=== PATIENT | female | born 1950 | race Caucasian/White ===

== ENCOUNTER → 2017-06-17 | Outpatient (CLI) | payer MEDICARE, BC ==
--- NOTE | 2017-06-17 14:01 | XR ---
EXAMINATION TYPE: XR lumbar spine 2 or 3V DATE OF EXAM: 06/17/2017 CLINICAL HISTORY: Chronic low back pain with history of multiple surgeries per patient. Lumbago per o rder. TECHNIQUE: Frontal and lateral images of the lumbar spine are obtained. COMPARISON: None FINDINGS: There are 5 lumbar type vertebral bodies identified. Lumbar spine is straightened on sagit sharon images. There is slight dextroconvex scoliosis centered in the mid lumbar spine on frontal images . There are left-sided interpedicular rods and screws transfixing L2-L4 levels. There is artificial dis c material at L2-L3 through L4-L5 levels. There is posterior metallic hardware from inferior L2 throu gh mid L5 vertebral body. Spinous processes are felt surgically resected. There is moderate disc space narrowing L5-S1 level. Vertebral body heights are maintained. Osseous st ructures are demineralized. IMPRESSION: As above.
== END | disposition home or self-care (01) ==
LOC: RADXRYALE 13:26
PROVIDERS: ATTEND Nurse Practitioner Family
DX: M48.07 Spinal stenosis, lumbosacral region (principal); M41.86 Other forms of scoliosis, lumbar region; Z98.890 Other specified postprocedural states
CPT/HCPCS: 72100

== ENCOUNTER → 2017-08-06 | Outpatient (CLI) | payer MEDICARE, BC ==
--- NOTE | 2017-08-08 20:44 | BD ---
EXAMINATION TYPE: Axial Bone Density DATE OF EXAM: 08/06/2017 COMPARISON: NONE CLINICAL HISTORY: Height: 5 FT 6 1/2 IN Weight: 150 FRAX RISK QUESTIONS: Secondary Osteoporosis: Rheumatoid Arthritis: YES RISK FACTORS HISTORY OF: Surgery to Spine/Hip(right/left)/Wrist (right/left): LUMBAR SURG X FIVE,CPINE SURG When: [id number] APPROX Active: YES Postmenopausal woman: AGE 56 Lost more than 2 inches in height since high school: YES MEDICATIONS: Additional Medications: B 12 , NEURONTIN,LOPRESSOR,MOBIC,NORCO NEEDED Additional History: LUMBAR SURG X 5 EXAM MEASUREMENTS: Bone mineral density about the R hip (g/cm2): 0.757 Bone mineral density about the L hip (g/cm2): 0.835 T Score values are as follows: -----R Neck: -2.0 -----L Neck: -1.5 -----R Total: -2.1 -----L Total: -1.4 BASELINE Bone mineral density about the R Wrist (g/cm2): 0.501 Bone mineral density about the L Wrist (g/cm2): T Score values are as follows: -----Dist. R+U: -4.0 -----Prox. R+U: -2.3 -----Radius total: -2.9 BASELINE IMPRESSION: Osteoporosis (T Score less than -2.5). There is increased fracture risk and therapy is usually indicated based on age. Re-Screen 1-2 years. NOTE: T-SCORE=SD OF THE YOUNG ADULT MEAN.
--- NOTE | 2017-08-09 10:15 | MM ---
Reason for exam: screening (asymptomatic). History: Patient is postmenopausal and had first child at age 33. Physical Findings: A clinical breast exam by your physician is recommended on an annual basis and results should be correlated with mammographic findings. MG Screening Mammo w CAD Bilateral CC and MLO view(s) were taken. No prior studies available for comparison. The breast tissue is extremely dense which could obscure a lesion on mammography. There are grouped right superior breast calcifications at posterior depth. No suspicious abnormality on the left breast. Left cardiac device partially obscures the axilla. ASSESSMENT: Incomplete: need additional imaging evaluation, BI-RAD 0 RECOMMENDATION: Special view mammogram of the right breast. [facility] will attempt to contact patient to return for supplemental views.
== END | disposition home or self-care (01) ==
LOC: RADMAMWWP 09:42
PROVIDERS: ATTEND Family Medicine
DX: Z12.31 Encounter for screening mammogram for malignant neoplasm of breast (principal); M81.0 Age-related osteoporosis without current pathological fracture
CPT/HCPCS: 77067; 77080

== ENCOUNTER → 2017-08-18 | Outpatient (CLI) | payer MEDICARE, BC ==
--- NOTE | 2017-08-18 13:54 | MM ---
Reason for exam: additional evaluation requested from abnormal screening. Last mammogram was performed less than 1 month ago. History: Patient is postmenopausal and had first child at age 33. Physical Findings: Nurse did not find any significant physical abnormalities on exam. MG 3D Work Up W/Cad RT CC with magnification, LM with magnification, and LM view(s) were taken of the right breast. Prior study comparison: August 06, 2017, bilateral MG screening mammo w CAD. There is a 6mm group of rounded calcifications in the upper outer quadrant of the right breast at posterior depth on baseline mammogram and magnification views. These results were verbally communicated with the patient and result sheet given to the patient on 08/18/17. ASSESSMENT: Probably benign, BI-RAD 3 RECOMMENDATION: Follow-up diagnostic mammogram of the right breast in 6 months.
== END ==
LOC: RADMAMWWP 09:47
PROVIDERS: ATTEND Family Medicine
DX: R92.8 Other abnormal and inconclusive findings on diagnostic imaging of breast (principal)
CPT/HCPCS: 77065; G0279; 77061

== ENCOUNTER 2018-02-14 10:16 | Emergency (ER) | payer MEDICARE, BC ==
[2018-02-14 10:33] VITALS: TEMP 98.6
--- NOTE | 2018-02-14 11:18 | XR ---
EXAMINATION TYPE: XR wrist complete LT DATE OF EXAM: 02/14/2018 COMPARISON: None HISTORY: Pain, fall TECHNIQUE: Three-view left wrist FINDINGS: There is an impacted fracture of the metaphysis of the radius. There is posterior angulatio n of the distal fracture fragment. Degenerative changes are noted at the first carpal metacarpal junc tion. Diffuse soft tissue swelling is present. IMPRESSION: 1. Fracture of the distal metaphyseal radius with impaction and posterior angulation of the distal f racture fragment. 2. Degenerative changes at the first carpal metacarpal junction.
[2018-02-14] MEDS ORDERED: ETOMIDATE 2 MG/ML 10 ML VIAL IV STA (12:05)
[2018-02-14] MEDS ORDERED: MORPHINE SULFATE 2 MG/ML SYRINGE IVP ONE (12:05)
[2018-02-14] MEDS ORDERED: ONDANSETRON 4 MG/2 ML VIAL IVP STA (12:05)
--- NOTE | 2018-02-14 12:19 | ED ---
Upper Extremity HPI <Robb Cordero - Last Filed: 02/14/18 12:50> - General Source: patient, RN notes reviewed Mode of arrival: ambulatory Limitations: no limitations <Bruce Mcallister - Last Filed: 02/14/18 12:57> - General Chief Complaint: Extremity Injury, Upper Stated Complaint: fall/wrist pain Time Seen by Provider: 02/14/18 10:42 - History of Present Illness Initial Comments: 68-year-old female presents emergency Department with chief complaint of left wrist injury. Patient states she is on step stool and fell onto her wrist onto the ground. Patient denies head injury no loss conscious. Patient denies any other injuries. She is ambulatory denies hip or back pain. Patient states that she woke up this morning is more swollen and she became concerned. Denies any paresthesias. (Bruce Mcallister) - Related Data Home Medications Medication Instructions Recorded Confirmed Alendronate Sodium 70 mg PO TU 02/14/18 02/14/18 Gabapentin 600 mg PO QID 02/14/18 02/14/18 Hydrocodone/Acetaminophen [Kennedy 1 tab PO TID PRN 02/14/18 02/14/18 10-325] Ibuprofen [Motrin] 600 mg PO Q6HR PRN 02/14/18 02/14/18 Meloxicam [Mobic] 7.5 mg PO DAILY 02/14/18 02/14/18 Metoprolol Tartrate [Lopressor] 25 mg PO BID 02/14/18 02/14/18 Nitroglycerin Sl Tabs [Nitrostat] 0.4 mg SUBLINGUAL Q5M PRN 02/14/18 02/14/18 Allergies Allergy/AdvReac Type Severity Reaction Status Date / Time Iodinated Contrast- Oral and Allergy Unknown Verified 02/14/18 10:28 IV Dye oxycodone [From OxyContin] Allergy Hallucinati Verified 02/14/18 10:28 ons Review of Systems ROS Other: All systems not noted in ROS Statement are negative. <Robb Cordero - Last Filed: 02/14/18 12:50> ROS Other: All systems not noted in ROS Statement are negative. <Bruce Mcallitser - Last Filed: 02/14/18 12:57> ROS Statement: Those systems with pertinent positive or pertinent negative responses have been documented in the HPI. Past Medical History History of Any Multi-Drug Resistant Organisms: None Reported Past Surgical History: Back Surgery, Pacemaker Additional Past Surgical History / Comment(s): defibrillator Past Psychological History: No Psychological Hx Reported Smoking Status: Never smoker Past Alcohol Use History: Occasional Past Drug Use History: None Reported <Bruce Mcallister - Last Filed: 02/14/18 12:57> General Exam Limitations: no limitations General appearance: alert, in no apparent distress Head exam: Present: atraumatic, normocephalic, normal inspection Neck exam: Present: normal inspection, full ROM. Absent: tenderness, meningismus, lymphadenopathy Respiratory exam: Present: normal lung sounds bilaterally. Absent: respiratory distress, wheezes, rales, rhonchi, stridor Cardiovascular Exam: Present: regular rate, normal rhythm, normal heart sounds. Absent: systolic murmur, diastolic murmur, rubs, gallop, clicks Extremities exam: Present: other (Left wrist there is a noted deformity, angulation, tenderness over the distal forearm and wrist region, no tenderness of the left hand, no proximal forearm tenderness) Skin exam: Present: warm, dry, intact, normal color. Absent: rash <Bruce Mcallister - Last Filed: 02/14/18 12:57> Vital Signs 02/14/18 02/14/18 02/14/18 10:29 12:18 12:21 Temperature 98.6 F Pulse Rate 60 73 63 Respiratory 18 18 18 Rate Blood Pressure 199/92 185/94 179/85 O2 Sat by Pulse 100 99 99 Oximetry 02/14/18 02/14/18 02/14/18 12:36 12:39 12:50 Temperature Pulse Rate 100 63 60 Respiratory 18 16 20 Rate Blood Pressure 152/108 155/86 182/90 O2 Sat by Pulse 100 63 L 97 Oximetry Procedures - Orthopedic Fracture Reduction Fracture #1 Consent Obtained: verbal consent, written consent Time Out Performed: Yes Side: left Fracture Reduction Location: radius Analgesia: procedural sedation Technique: direct manipulation, finger traps Post Reduction X-rays Demonstrate: acceptable reduction Post-Reduction Neuro Exam: intact Post-Reduction Vascular Exam: intact Splint Applied: Yes Patient Tolerated Procedure: well, no complications - Orthopedic Splinting/Casting Injury #1 Side: left Upper Extremity Injury Location: short arm Upper Extremity Immobilizer: sugar tong splint - Procedural Sedation Procedural Sedation Start Time: 12:28 Procedural Sedation Stop Time: 12:50 Indications: fracture/dislocation reduction Preparation: gambling monitor applied, pulse oximeter, capnometry used, supplemental O2 applied IV Etomidate Dose (mgs): 20 Complications: none Patient Tolerated Procedure: well, no complications <Robb Cordero - Last Filed: 02/14/18 12:50> Medical Decision Making <Robb Cordero - Last Filed: 02/14/18 12:50> <Bruce Mcallister - Last Filed: 02/14/18 12:57> - Medical Decision Making Patient evaluated prior to reduction. Patient updated on benefits and risks of reduction and sedation. Patient is agreeable. Reduction was acceptable. Patient updated. I did perform the sedation and reduction myself with assistance of ATIF Keen (Robb Cordero) 68-year-old female sent for fall left wrist pain. Patient had left wrist fracture with displacement. This was reduced by Dr. Cordero. Patient was splinted and will follow-up with orthopedics. (Bruce Mcallister) Disposition <Robb Cordero - Last Filed: 02/14/18 12:50> Is patient prescribed a controlled substance at d/c from ED?: No Time of Disposition: 12:57 <Bruce Mcallister - Last Filed: 02/14/18 12:57> Clinical Impression: Closed left arm fracture Disposition: HOME SELF-CARE Condition: Stable Instructions: Arm Fracture in Adults (ED) Additional Instructions: Please return to the Emergency Department if symptoms worsen or any other concerns. Referrals: Anai Frank DO [Primary Care Provider] - 1-2 days Daniel Robertson MD [STAFF PHYSICIAN] - 1-2 days
[2018-02-14] MEDS ORDERED: ETOMIDATE 2 MG/ML 10 ML VIAL IVP STA (12:47)
--- NOTE | 2018-02-14 13:22 | XR ---
EXAMINATION TYPE: XR wrist limited LT DATE OF EXAM: 02/14/2018 COMPARISON: 02/14/2018 earlier exam HISTORY: Fracture distal radius TECHNIQUE: 2 view left wrist FINDINGS: Images are obtained through a fiberglass splint. There is a transverse fracture of the dist al metaphysis left radius. This is been reduced and only mild posterior angulation may be present. Th ere may be some impaction remaining. Soft tissue swelling is present diffusely. IMPRESSION: 1. Reduction of prior transverse fracture distal metaphyseal left radius.
[2018-02-14 13:34] VITALS: BP 184/89; PULSE 62; RESP 18
== END 2018-02-14 13:34 | disposition home or self-care (01) ==
LOC: EC 10:16
DX: S52.592A Other fractures of lower end of left radius, initial encounter for closed fracture (principal); Z79.1 Long term (current) use of non-steroidal anti-inflammatories (NSAID); Z79.899 Other long term (current) drug therapy; Z88.8 Allergy status to other drugs, medicaments and biological substances; Z91.041 Radiographic dye allergy status; W17.89XA Other fall from one level to another, initial encounter; Y93.89 Activity, other specified; Y92.009 Unspecified place in unspecified non-institutional (private) residence as the place of occurrence of the external cause; Z95.810 Presence of automatic (implantable) cardiac defibrillator
CPT/HCPCS: 99283 ×2; 25605 ×2; 99152 ×2; 96374 ×2; 96375 ×2; 73100; 73110; J2405; J2270

== ENCOUNTER 2018-10-24 11:32 | Inpatient (IN) | payer MEDICARE, BC ==
[2018-10-24 12:12] LABS: Appearance,Urine Cloudy (Clear); Bacteria,Urine Few /hpf; Bilirubin,Urine Negative (Negative); Blood,Urine Small (Negative); Color,Urine Light Yellow; Glucose,Urine (UA) Negative (Negative); Ketones,Urine Negative (Negative); Leukocyte Esterase,Urine Large (Negative); Mucus,Urine Rare /hpf; Nitrite,Urine Positive (Negative); Protein,Urine Trace (Negative); RBC,Urine 4 /hpf (0-5); Specific Gravity,Urine 1.007 (1.001-1.035); Squamous Epithelial Cell,Urine 2 /hpf (0-4); Urobilinogen,Urine <2.0 mg/dL (<2.0); WBC,Urine 26 /hpf (0-5)
[2018-10-24] MEDS ORDERED: IBUPROFEN 600 MG TAB PO STA (12:59)
[2018-10-24] MEDS ORDERED: ACETAMINOPHEN TAB 500 MG TAB PO STA (12:59)
--- NOTE | 2018-10-24 13:12 | ED ---
General Adult HPI - General Chief complaint: Altered Mental Status Stated complaint: confusion Time Seen by Provider: 10/24/18 11:50 Source: patient, RN notes reviewed Mode of arrival: ambulatory Limitations: no limitations - History of Present Illness Initial comments: This is a 68-year-old female who presents to the emergency department because daughter brought her in because she was confused. Patient herself does not remember some of the things that when on this morning but daughter states that she thought it was lunch when it was breakfast she also was confused where she was and when she got to the emergency department she thought she had gone to bathroom at home but had just gone to the bathroom in the emergency department. According to the daughter on Wednesday the patient had a temperature of 102 and on Wednesday when she saw a physician for something else she had low blood pressure so they cut her blood pressure meds and half but daughter is now wondering if she has not been febrile all weekend. Patient denies any headache patient d enies any numbness or weakness. Patient denies chest pain difficulty breathing first breath per patient denies any cough. Patient denies any abdominal pain patient's nausea vomiting or diarrhea. Patient denies any hematuria urinary frequency or urinary urgency or dysuria. - Related Data Home Medications Medication Instructions Recorded Confirmed Alendronate Sodium 70 mg PO TU 02/14/18 10/24/18 Gabapentin 600 mg PO QID 02/14/18 10/24/18 Meloxicam [Mobic] 7.5 mg PO BID 02/14/18 10/24/18 Nitroglycerin Sl Tabs [Nitrostat] 0.4 mg SUBLINGUAL Q5M PRN 02/14/18 10/24/18 Metoprolol Succinate (ER) [Toprol 25 mg PO DAILY 10/24/18 10/24/18 Xl] Allergies Allergy/AdvReac Type Severity Reaction Status Date / Time Iodinated Contrast- Oral and Allergy Unknown Verified 10/24/18 13:11 IV Dye oxycodone [From OxyContin] Allergy Hallucinati Verified 10/24/18 13:11 ons Review of Systems ROS Statement: Those systems with pertinent positive or pertinent negative responses have been documented in the HPI. ROS Other: All systems not noted in ROS Statement are negative. Past Medical History Past Medical History: Hypertension Additional Past Medical History / Comment(s): chronic back cardiac arrest cardiomyopathy History of Any Multi-Drug Resistant Organisms: None Reported Past Surgical History: Back Surgery, Pacemaker Additional Past Surgical History / Comment(s): defibrillator neck Past Psychological History: No Psychological Hx Reported Smoking Status: Never smoker Past Alcohol Use History: Occasional Past Drug Use History: None Reported General Exam - General Exam Comments Initial Comments: GENERAL: Patient is well-developed and well-nourished. Patient is nontoxic and well- hydrated and is in mild distress. ENT: Neck is soft and supple. No significant lymphadenopathy is noted. Oropharynx is clear. Moist mucous membranes. Neck has full range of motion without eliciting any pain. EYES: The sclera were anicteric and conjunctiva were pink and moist. Extraocular movements were intact and pupils were equal round and reactive to light. Eyelids were unremarkable. PULMONARY: Unlabored respirations. Good breath sounds bilaterally. No audible rales rhonchi or wheezing was noted. CARDIOVASCULAR: There is a regular rate and rhythm without any murmurs gallops or rubs. ABDOMEN: Soft and nontender with normal bowel sounds. SKIN: Skin is clear with no lesions or rashes and otherwise unremarkable. NEUROLOGIC: Patient is alert and oriented x3. Cranial nerves II through XII are grossly intact. Motor and sensory are also intact. Normal speech, volume and content. Symmetrical smile. MUSCULOSKELETAL: Normal extremities with adequate strength and full range of motion. No lower extremity swelling or edema. No calf tenderness. LYMPHATICS: No significant lymphadenopathy is noted PSYCHIATRIC: Normal psychiatric evaluation. Limitations: no limitations Course Vital Signs 10/24/18 10/24/18 11:47 14:37 Temperature 103.0 F H 100.7 F H Pulse Rate 87 66 Respiratory 18 14 Rate Blood Pressure 126/68 113/57 O2 Sat by Pulse 98 96 Oximetry Medical Decision Making - Medical Decision Making EKG shows normal sinus rhythm at 66 bpm TX interval is 148 QRSs 142 QT intervals 470 QTC is 492 per patient's EKG shows a left bundle branch block. Patient was still slightly altered according to the daughter. Patient urinary tract infection so at this time we decided to keep the patient and continue antibiotics and fluids. I spoke with because he agreed to admit the patient admitted the patient wrote admitting orders. - Lab Data Result diagrams: 10/24/18 14:00 10/24/18 14:00 Lab Results 10/24/18 10/24/18 10/24/18 Range/Units 11:52 14:00 14:00 WBC 7.7 (3.8-10.6) k/uL RBC 3.04 L (3.80-5.40) m/uL Hgb 10.3 L (11.4-16.0) gm/dL Hct 30.5 L (34.0-46.0) % MCV 100.2 H (80.0-100.0) fL MCH 33.9 (25.0-35.0) pg MCHC 33.8 (31.0-37.0) g/dL RDW 13.1 (11.5-15.5) % Plt Count 200 (150-450) k/uL Neutrophils % (Manual) 82 % Lymphocytes % (Manual) 4 % Monocytes % (Manual) 14 % Neutrophils # (Manual) 6.31 (1.3-7.7) k/uL Lymphocytes # (Manual) 0.31 L (1.0-4.8) k/uL Monocytes # (Manual) 1.08 H (0-1.0) k/uL Nucleated RBCs 0 (0-0) /100 WBC Manual Slide Review Performed Poikilocytosis (manual Present Anisocytosis (manual) Present PT (9.0-12.0) sec INR (<1.2) APTT (22.0-30.0) sec Sodium 127 L (137-145) mmol/L Potassium 4.4 (3.5-5.1) mmol/L Chloride 96 L (98-107) mmol/L Carbon Dioxide 21 L (22-30) mmol/L Anion Gap 10 mmol/L BUN 13 (7-17) mg/dL Creatinine 0.84 (0.52-1.04) mg/dL Est GFR (CKD-EPI)AfAm 83 (>60 ml/min/1.73 sqM) Est GFR (CKD-EPI)NonAf 72 (>60 ml/min/1.73 sqM) Glucose 112 H (74-99) mg/dL Plasma Lactic Acid Marco A (0.7-2.0) mmol/L Calcium 8.3 L (8.4-10.2) mg/dL Total Bilirubin 0.5 (0.2-1.3) mg/dL AST 24 (14-36) U/L ALT 16 (9-52) U/L Alkaline Phosphatase 49 (38-126) U/L Total Protein 6.3 (6.3-8.2) g/dL Albumin 3.4 L (3.5-5.0) g/dL Urine Color Light Yellow Urine Appearance Cloudy H (Clear) Urine pH 6.0 (5.0-8.0) Ur Specific [place] 1.007 (1.001-1.035) Urine Protein Trace H (Negative) Urine Glucose (UA) Negative (Negative) Urine Ketones Negative (Negative) Urine Blood Small H (Negative) Urine Nitrite Positive H (Negative) Urine Bilirubin Negative (Negative) Urine Urobilinogen <2.0 (<2.0) mg/dL Ur Leukocyte Esterase Large H (Negative) Urine RBC 4 (0-5) /hpf Urine WBC 26 H (0-5) /hpf Ur Squamous Epith Cells 2 (0-4) /hpf Urine Bacteria Few H (None) /hpf Urine Mucus Rare H (None) /hpf 10/24/18 10/24/18 Range/Units 14:00 14:00 WBC (3.8-10.6) k/uL RBC (3.80-5.40) m/uL Hgb (11.4-16.0) gm/dL Hct (34.0-46.0) % MCV (80.0-100.0) fL MCH (25.0-35.0) pg MCHC (31.0-37.0) g/dL RDW (11.5-15.5) % Plt Count (150-450) k/uL Neutrophils % (Manual) % Lymphocytes % (Manual) % Monocytes % (Manual) % Neutrophils # (Manual) (1.3-7.7) k/uL Lymphocytes # (Manual) (1.0-4.8) k/uL Monocytes # (Manual) (0-1.0) k/uL Nucleated RBCs (0-0) /100 WBC Manual Slide Review Poikilocytosis (manual Anisocytosis (manual) PT 9.8 (9.0-12.0) sec INR 0.9 (<1.2) APTT 30.3 H (22.0-30.0) sec Sodium (137-145) mmol/L Potassium (3.5-5.1) mmol/L Chloride (98-107) mmol/L Carbon Dioxide (22-30) mmol/L Anion Gap mmol/L BUN (7-17) mg/dL Creatinine (0.52-1.04) mg/dL Est GFR (CKD-EPI)AfAm (>60 ml/min/1.73 sqM) Est GFR (CKD-EPI)NonAf (>60 ml/min/1.73 sqM) Glucose (74-99) mg/dL Plasma Lactic Acid Marco A 0.7 (0.7-2.0) mmol/L Calcium (8.4-10.2) mg/dL Total Bilirubin (0.2-1.3) mg/dL AST (14-36) U/L ALT (9-52) U/L Alkaline Phosphatase (38-126) U/L Total Protein (6.3-8.2) g/dL Albumin (3.5-5.0) g/dL Urine Color Urine Appearance (Clear) Urine pH (5.0-8.0) Ur Specific [place] (1.001-1.035) Urine Protein (Negative) Urine Glucose (UA) (Negative) Urine Ketones (Negative) Urine Blood (Negative) Urine Nitrite (Negative) Urine Bilirubin (Negative) Urine Urobilinogen (<2.0) mg/dL Ur Leukocyte Esterase (Negative) Urine RBC (0-5) /hpf Urine WBC (0-5) /hpf Ur Squamous Epith Cells (0-4) /hpf Urine Bacteria (None) /hpf Urine Mucus (None) /hpf Disposition Clinical Impression: Altered mental status, Urinary tract infection Disposition: ADMITTED IP TO THIS HOSP Referrals: Anai Frank DO [Primary Care Provider] - 1-2 days Time of Disposition: 15:43
--- NOTE | 2018-10-24 13:34 | XR ---
EXAMINATION TYPE: XR chest 2V DATE OF EXAM: 10/24/2018 COMPARISON: None HISTORY: 68-year-old female with fever and confusion TECHNIQUE: PA and lateral views FINDINGS: Heart normal size. Aorta within normal limits. ACF hardware. Mild patchy density at the cardiac apex. No pleural effusion. Left anterior chest wall ICD generator with right atrial and right ventricular leads. Partially visualized posterior lumbar fusion hardware. IMPRESSION: Some mild patchy density at the cardiac apex could represent lingular atelectasis or early infiltrate . Consider follow-up.
[2018-10-24] MEDS: SODIUM CHLORIDE 0.9% 500 ML 500 ML IV SCH ×3 (14:10→14:42)
[2018-10-24 14:30] LABS: Albumin 3.4 g/dL (3.5-5.0); Calcium 8.3 mg/dL (8.4-10.2); Potassium 4.4 mmol/L (3.5-5.1); Total Bilirubin 0.5 mg/dL (0.2-1.3); Total Protein 6.3 g/dL (6.3-8.2)
[2018-10-24 14:31] LABS: INR 0.9 (<1.2); Partial Thromboplastin Time 30.3 sec (22.0-30.0); Prothrombin Time 9.8 sec (9.0-12.0)
[2018-10-24 14:37] LABS: HCT 30.5 % (34.0-46.0); HGB 10.3 gm/dL (11.4-16.0); MCH 33.9 pg (25.0-35.0); MCHC 33.8 g/dL (31.0-37.0); MCV 100.2 fL (80.0-100.0); Mean Platelet Volume 7.7; Platelet Count 200 k/uL (150-450); RBC 3.04 m/uL (3.80-5.40); RDW 13.1 % (11.5-15.5); WBC 7.7 k/uL (3.8-10.6)
[2018-10-24 14:56] LABS: Anisocytosis (M) Present; Lymphocytes # (M) 0.31 k/uL (1.0-4.8); Monocytes # (M) 1.08 k/uL (0-1.0); Neutrophils # (M) 6.31 k/uL (1.3-7.7); Neutrophils % (M) 82 %; Nucleated Red Blood Cells 0 /100 WBC (0-0); Poikilocytosis (M) Present; Total Cells Counted 100
[2018-10-24] MEDS ORDERED: SODIUM CHLORIDE 0.9% 1,000 ML IV ONE (15:44)
[2018-10-24] MEDS ORDERED: NITROGLYCERIN SL TABS 0.4 MG TAB SUBLINGUAL PRN (17:36)
[2018-10-24] MEDS: GABAPENTIN 300 MG CAP PO SCH ×2 (18:19→21:10)
[2018-10-24] MEDS: MELOXICAM 7.5 MG TAB PO SCH (21:10)
[2018-10-24] MEDS: HEPARIN SODIUM,PORCINE 5,000 UNIT/ML 1 ML VIAL SQ SCH (21:10)
[2018-10-25] MEDS: ACETAMINOPHEN TAB 325 MG TAB PO PRN ×3 (03:09→19:13)
[2018-10-25] MEDS: MELOXICAM 7.5 MG TAB PO SCH ×2 (07:54→21:06)
[2018-10-25] MEDS: METOPROLOL SUCCINATE (ER) 25 MG TAB.ER.24H PO SCH (07:54)
[2018-10-25] MEDS: HEPARIN SODIUM,PORCINE 5,000 UNIT/ML 1 ML VIAL SQ SCH ×2 (07:55→21:09)
[2018-10-25] MEDS: GABAPENTIN 300 MG CAP PO SCH ×4 (07:55→21:06)
[2018-10-25 14:56] LABS: Basophils # (A) 0.1 k/uL (0-0.2); Basophils % (A) 1 %; Eosinophils # (A) 0.1 k/uL (0-0.7); Eosinophils % (A) 1 %; HCT 36.4 % (34.0-46.0); HGB 11.5 gm/dL (11.4-16.0); Lymphocytes # (A) 0.6 k/uL (1.0-4.8); Lymphocytes % (A) 5 %; MCH 33.8 pg (25.0-35.0); MCHC 31.6 g/dL (31.0-37.0); Macrocytosis Moderate; Mean Platelet Volume 7.7; Monocytes # (A) 1.2 k/uL (0-1.0); Monocytes % (A) 10 %; Neutrophils # (A) 9.3 k/uL (1.3-7.7); Neutrophils % (A) 80 %; Platelet Count 248 k/uL (150-450); RBC 3.41 m/uL (3.80-5.40); RDW 13.1 % (11.5-15.5); WBC 11.7 k/uL (3.8-10.6)
[2018-10-25 15:10] LABS: African American GFR (CKD) >90 (>60 ml/min/1.73 sqM); Anion Gap 11 mmol/L; Blood Urea Nitrogen 11 mg/dL (7-17); Calcium 8.3 mg/dL (8.4-10.2); Carbon Dioxide 19 mmol/L (22-30); Chloride 105 mmol/L (98-107); Glucose 110 mg/dL (74-99); Non-African American GFR(CKD) >90 (>60 ml/min/1.73 sqM); Potassium 4.4 mmol/L (3.5-5.1); Sodium 135 mmol/L (137-145)
[2018-10-25 15:19] LABS: MCV 106.9 fL (80.0-100.0)
[2018-10-25] MEDS ORDERED: HYDROcodone/APAP 5-325MG 1 EACH TAB PO PRN ×2 (20:11→22:04)
--- NOTE | 2018-10-25 23:11 | P.HPIM ---
History of Present Illness H&P Date: 10/25/18 Chief Complaint: Altered mental status Patient is a 68-year-old female with a known history of chronic back pain and multiple back surgeries, dual pacer and defibrillator due to history of cardiac arrest following back surgery, bilateral knee pain was brought to the hospital due to altered mental status. Patient says that her daughter found her very confused and also wasn't able to keep her things in the house as her usual. Patient is babysitting her grandkids. Patient's daughter is a nurse and thought she is very confused and having altered sensorium and was brought to the hospital. According to the daughter on Wednesday the patient had a temperature of 102 and on Wednesday when she saw a physician for something else she had low blood pressure so they cut her blood pressure meds and half but daughter is now wondering if she has not been febrile all weekend. Patient denies any headache patient denies any numbness or weakness. Patient denies chest pain difficulty breathing first breath per patient denies any cough. Patient denies any abdominal pain patient's nausea vomiting or diarrhea. Patient denies any hematuria urinary frequency or urinary urgency or dysuria. Otherwise patient did some lower abdominal discomfort and going to the bathroom more often with sense of incomplete bladder emptying. Urinalysis showed nitrate positive and large leukocyte esterase along with pyuria. Sodium level is 127 on admission. T-max 10 3F currently patient is awake alert and oriented 3 and is at baseline. Review of Systems Constitutional: Patient denies any fever or chills . No generalized weakness or weight loss. Abdomen: Patient denied nausea vomiting and diarrhea and abdominal pain. Cardiovascular: Patient denies any chest pain or short of breath no palpitations. Respiratory: patient denied any cough is from production. No shortness of breath Neurologic: Patient denied any numbness or tingling headache. Musculoskeletal: Patient denies any complaints of joint swelling or deformity. Skin: Negative Psychiatric: Negative Endocrine: No heat or cold intolerance. No recent weight gain. Genitourinary: No dysuria or hematuria. All other 14 point ROS negative except the above Past Medical History Past Medical History: Hypertension Additional Past Medical History / Comment(s): chronic back pain, cardiac arrest, cardiomyopathy, bilateral kneee pain (in need of replacement), left hip pain (in need of replacement) History of Any Multi-Drug Resistant Organisms: None Reported Past Surgical History: Back Surgery, Pacemaker Additional Past Surgical History / Comment(s): dual pacer, defibrillator, cervical spondylosis, multiple back surgeries. Past Anesthesia/Blood Transfusion Reactions: No Reported Reaction Type of Cardiac Device: Permanent Pacemaker, AICD Device Placement Date:: 2007 Past Psychological History: No Psychological Hx Reported Smoking Status: Never smoker Past Alcohol Use History: Occasional Past Drug Use History: None Reported - Past Family History Father Family Medical History: Congestive Heart Failure (CHF), Diabetes Mellitus Additional Family Medical History / Comment(s): in 1970 at age 57 Mother Family Medical History: Congestive Heart Failure (CHF) Additional Family Medical History / Comment(s): at age 90 Medications and Allergies Home Medications Medication Instructions Recorded Confirmed Type Alendronate Sodium 70 mg PO TU 02/14/18 10/24/18 History Gabapentin 600 mg PO QID 02/14/18 10/24/18 History Meloxicam [Mobic] 7.5 mg PO BID 02/14/18 10/24/18 History Nitroglycerin Sl Tabs [Nitrostat] 0.4 mg SUBLINGUAL Q5M PRN 02/14/18 10/24/18 History Metoprolol Succinate (ER) [Toprol 25 mg PO DAILY 10/24/18 10/24/18 History Xl] Allergies Allergy/AdvReac Type Severity Reaction Status Date / Time Iodinated Contrast- Oral and Allergy Unknown Verified 10/24/18 13:11 IV Dye oxycodone [From OxyContin] Allergy Hallucinati Verified 10/24/18 13:11 ons Physical Exam Vitals: Vital Signs Temp Pulse Pulse Resp BP BP Pulse Ox 10/25/18 07:45 98 10/25/18 05:00 100.2 F H 77 18 132/69 97 10/24/18 23:00 97.5 F L 60 18 154/71 100 10/24/18 17:10 60 18 10/24/18 16:35 97.9 F 60 18 107/54 98 10/24/18 16:03 99.5 F 60 14 107/54 98 10/24/18 14:37 100.7 F H 66 14 113/57 96 Intake and Output 10/24/18 10/25/18 10/25/18 22:59 06:59 14:59 Intake Total 0 1000 Balance 0 1000 Intake: Intake, IV Titration 1000 Amount Sodium Chloride 0.9% 1, 1000 000 ml @ 125 mls/hr IV . Q8H ONE Rx#:[id number] Oral 0 Other: Voiding Method Toilet Toilet # Voids 2 3 # Bowel Movements 1 PHYSICAL EXAMINATION: Patient is lying in the bed comfortably, no acute distress, awake alert and deedee ented.. HEENT: Normocephalic. Neck is supple. Pupils reactive. Nostrils clear. Oral cavity is moist. Ears reveal no drainage. Neck reveals no JVD, carotid bruits, or thyromegaly. CHEST EXAMINATION: Trachea is central. Symmetrical expansion. Lung parekh clear to auscultation and percussion. CARDIAC: Normal S1, S2 with no gallops. No murmurs ABDOMEN: Soft. Bowel sounds normal. No organomegaly. No abdominal bruits. Extremities: reveal no edema. No clubbing or cyanosis Neurologically awake, alert, oriented x3 with well-coordinated movements. No focal deficits noted Skin: No rash or skin lesions. Psychiatric: Coperative. Nonsuicidal Musculoskeletal: No joint swelling or deformity. Normal range of motion. Results CBC & Chem 7: 10/25/18 14:38 10/25/18 14:38 Labs: Abnormal Lab Results - Last 24 Hours (Table) 10/24/18 10/24/18 10/24/18 Range/Units 14:00 14:00 14:00 RBC 3.04 L (3.80-5.40) m/uL Hgb 10.3 L (11.4-16.0) gm/dL Hct 30.5 L (34.0-46.0) % MCV 100.2 H (80.0-100.0) fL Lymphocytes # (Manual) 0.31 L (1.0-4.8) k/uL Monocytes # (Manual) 1.08 H (0-1.0) k/uL APTT 30.3 H (22.0-30.0) sec Sodium 127 L (137-145) mmol/L Chloride 96 L (98-107) mmol/L Carbon Dioxide 21 L (22-30) mmol/L Glucose 112 H (74-99) mg/dL Calcium 8.3 L (8.4-10.2) mg/dL Albumin 3.4 L (3.5-5.0) g/dL Microbiology - Last 24 Hours (Table) 10/24/18 11:52 Urine Culture - Preliminary Urine,Voided Gram Neg Bacilli Thrombosis Risk Factor Assmnt - DVT/VTE Prophylaxis DVT/VTE Prophylaxis: Pharmacologic Prophylaxis ordered - Choose All That Apply Each Risk Factor Represents 2 Points: Age 61-74 years Thrombosis Risk Factor Assessment Total Risk Factor Score: 2 Thrombosis Risk Factor Assessment Level: Low Risk Assessment and Plan Assessment: Altered mental status secondary to metabolic encephalopathy and infection Acute urinary tract infection Hypovolemic hyponatremia Macrocytic anemia Chronic back pain and left hip pain History of cardiac arrest and status AICD placement. DVT prophylaxis with heparin subcu Plan Patient will be continued on antibiotics in the form of ceftriaxone. Follow with urine culture report. Patient was given 1 L normal saline bolus in the ER. Follow up sodium level. Continue the pain medications in the form of [place]. We will check B12 and TSH level. Further recommendations based on the clinical course. Follow up closely. Time with Patient: Greater than 30
[2018-10-26] MEDS: HEPARIN SODIUM,PORCINE 5,000 UNIT/ML 1 ML VIAL SQ SCH (07:57)
[2018-10-26] MEDS: MELOXICAM 7.5 MG TAB PO SCH (07:57)
[2018-10-26] MEDS: GABAPENTIN 300 MG CAP PO SCH ×2 (07:57→13:18)
[2018-10-26] MEDS: METOPROLOL SUCCINATE (ER) 25 MG TAB.ER.24H PO SCH (07:57)
[2018-10-26 08:04] LABS: Basophils % (A) 0 %; Eosinophils # (A) 0.1 k/uL (0-0.7); Eosinophils % (A) 1 %; HCT 30.7 % (34.0-46.0); Lymphocytes # (A) 0.7 k/uL (1.0-4.8); Lymphocytes % (A) 9 %; MCH 33.2 pg (25.0-35.0); MCHC 32.3 g/dL (31.0-37.0); MCV 102.9 fL (80.0-100.0); Macrocytosis Slight; Mean Platelet Volume 7.5; Monocytes # (A) 0.7 k/uL (0-1.0); Monocytes % (A) 9 %; Neutrophils # (A) 6.1 k/uL (1.3-7.7); Neutrophils % (A) 77 %; Platelet Count 235 k/uL (150-450); RBC 2.98 m/uL (3.80-5.40); RDW 12.8 % (11.5-15.5); WBC 7.9 k/uL (3.8-10.6)
[2018-10-26 08:07] LABS: African American GFR (CKD) >90 (>60 ml/min/1.73 sqM); Anion Gap 8 mmol/L; Blood Urea Nitrogen 6 mg/dL (7-17); Carbon Dioxide 23 mmol/L (22-30); Chloride 102 mmol/L (98-107); Glucose 96 mg/dL (74-99); Non-African American GFR(CKD) >90 (>60 ml/min/1.73 sqM); Sodium 133 mmol/L (137-145)
[2018-10-26 08:08] LABS: HGB 9.9 gm/dL (11.4-16.0)
[2018-10-26 12:45] VITALS: BP 152/80; PULSE 61; RESP 16; TEMP 98.6
--- NOTE | 2018-11-07 02:22 | P.DS ---
Providers Date of admission: 10/24/18 15:44 Expected date of discharge: 10/26/18 Attending physician: Tito Valentin Primary care physician: Anai Frank Hospital Course: Discharge diagnosis Altered mental status secondary to metabolic encephalopathy and infection. resolved now Acute urinary tract infection with E. coli Hypovolemic hyponatremia. Improved Macrocytic anemia Chronic back pain and left hip pain History of cardiac arrest and status AICD placement. DVT prophylaxis with heparin subcu Hospital course Patient is a 68-year-old female with a known history of chronic back pain and multiple back surgeries, dual pacer and defibrillator due to history of cardiac arrest following back surgery, bilateral knee pain was brought to the hospital due to altered mental status. Patient says that her daughter found her very co nfused and also wasn't able to keep her things in the house as her usual. Patient is babysitting her grandkids. Patient's daughter is a nurse and thought she is very confused and having altered sensorium and was brought to the hospital. According to the daughter on Wednesday the patient had a temperature of 102 and on Wednesday when she saw a physician for something else she had low blood pressure so they cut her blood pressure meds and half but daughter is now wondering if she has not been febrile all weekend. Patient denies any headache patient denies any numbness or weakness. Patient denies chest pain difficulty breathing first breath per patient denies any cough. Patient denies any abdominal pain patient's nausea vomiting or diarrhea. Patient denies any hematuria urinary frequency or urinary urgency or dysuria. Otherwise patient did some lower abdominal discomfort and going to the bathroom more often with sense of incomplete bladder emptying. Urinalysis showed nitrate positive and large leukocyte esterase along with pyuria. Sodium level is 127 on admission. T-max 10 3F currently patient is awake alert and oriented 3 and is at baseline. 10/26/2018 Patient is awake and alert and oriented 3 today. Patient was continued on ceftriaxone. Urine culture showed E. coli. Sodium level improved to 133 today. Otherwise patient wants to be discharged home today. TSH within normal limits. B12 level is elevated but patient is not on B12 supplements at home. No complaints of chest pain or shortness of breath. No nausea vomiting or abdominal pain. PHYSICAL EXAMINATION: Patient is lying in the bed comfortably, no acute distress, awake alert and oriented.. HEENT: Normocephalic. Neck is supple. Pupils reactive. Nostrils clear. Oral cavity is moist. Ears reveal no drainage. Neck reveals no JVD, carotid bruits, or thyromegaly. CHEST EXAMINATION: Trachea is central. Symmetrical expansion. Lung parekh clear to auscultation and percussion. CARDIAC: Normal S1, S2 with no gallops. No murmurs ABDOMEN: Soft. Bowel sounds normal. No organomegaly. No abdominal bruits. Extremities: reveal no edema. No clubbing or cyanosis Neurologically awake, alert, oriented x3 with well-coordinated movements. No focal deficits noted Skin: No rash or skin lesions. Psychiatric: Coperative. Nonsuicidal Musculoskeletal: No joint swelling or deformity. Normal range of motion. Discharge vitals reviewed Patient Condition at Discharge: Good Plan - Discharge Summary Discharge Rx Participant: Yes New Discharge Prescriptions: New Cefuroxime Axetil [Ceftin] 500 mg PO BID 3 Days #6 tab Continue Nitroglycerin Sl Tabs [Nitrostat] 0.4 mg SUBLINGUAL Q5M PRN PRN Reason: Angina Meloxicam [Mobic] 7.5 mg PO BID Gabapentin 600 mg PO QID Alendronate Sodium 70 mg PO TU Metoprolol Succinate (ER) [Toprol XL] 25 mg PO DAILY Discharge Medication List Alendronate Sodium 70 mg PO TU 02/14/18 [History] Gabapentin 600 mg PO QID 02/14/18 [History] Meloxicam [Mobic] 7.5 mg PO BID 02/14/18 [History] Nitroglycerin Sl Tabs [Nitrostat] 0.4 mg SUBLINGUAL Q5M PRN 02/14/18 [History] Metoprolol Succinate (ER) [Toprol XL] 25 mg PO DAILY 10/24/18 [History] Cefuroxime Axetil [Ceftin] 500 mg PO BID 3 Days #6 tab 10/26/18 [Rx] Follow up Appointment(s)/Referral(s): Anai Frank DO [Primary Care Provider] - 10/31/18 2:40 pm Patient Instructions/Handouts: Urinary Tract Infection in Women (DC) Activity/Diet/Wound Care/Special Instructions: Regular diet. Activity as tolerated, fall precautions, up with walker and back brace. Discharge Disposition: HOME SELF-CARE
== END 2018-10-26 17:29 | disposition home or self-care (01) | DRG 689 ==
LOC: EC 11:32 → 4MS4W 15:44
PROVIDERS: ADMIT Internal Medicine; ATTEND Internal Medicine
DX: N39.0 Urinary tract infection, site not specified (principal); G93.41 Metabolic encephalopathy; E87.1 Hypo-osmolality and hyponatremia; I42.9 Cardiomyopathy, unspecified; D53.9 Nutritional anemia, unspecified; E86.1 Hypovolemia; G89.29 Other chronic pain; I10 Essential (primary) hypertension; I44.7 Left bundle-branch block, unspecified; M25.561 Pain in right knee; M25.562 Pain in left knee; M47.812 Spondylosis without myelopathy or radiculopathy, cervical region; M25.552 Pain in left hip; M54.9 Dorsalgia, unspecified; Z79.1 Long term (current) use of non-steroidal anti-inflammatories (NSAID); Z79.899 Other long term (current) drug therapy; Z88.5 Allergy status to narcotic agent; Z91.041 Radiographic dye allergy status; Z86.74 Personal history of sudden cardiac arrest; Z95.810 Presence of automatic (implantable) cardiac defibrillator; Z82.49 Family history of ischemic heart disease and other diseases of the circulatory system; Z83.3 Family history of diabetes mellitus
CPT/HCPCS: 36415; 71046; 80048; 80053; 81001; 82607; 83605; 84443; 85025; 85610; 85730; 87040; 87077; 87086; 87186; 93005; 94760; 96361; 96365; 99285

== ENCOUNTER 2020-05-21 09:47 | Emergency (ER) | payer MEDICARE, BC ==
[2020-05-21 09:53] VITALS: RESP 18
--- NOTE | 2020-05-21 10:34 | XR ---
EXAMINATION TYPE: XR ankle complete RT DATE OF EXAM: 05/21/2020 COMPARISON: None HISTORY: Pain TECHNIQUE: Right ankle is examined in 3 projections. FINDINGS: There is a transverse fracture through the distal metaphyseal fibula. The ankle mortise is intact. Soft tissue swelling is over the lateral malleolus. Structures appear osteopenic. Large plant ar calcaneal heel spur is present. IMPRESSION: 1. Transverse fracture metaphysis distal fibula with overlying soft tissue swelling.
--- NOTE | 2020-05-21 10:38 | ED ---
Lower Extremity Injury HPI - General Chief Complaint: Extremity Injury, Lower Stated Complaint: R Ankle Injury Time Seen by Provider: 05/21/20 09:59 Source: patient, RN notes reviewed Mode of arrival: wheelchair Limitations: no limitations - History of Present Illness Initial Comments: 70-year-old female presents emergency Department chief complaint of right ankle and foot pain. Patient states that she was coming down the steps and states a dog tripped her. Patient states that she has right ankle foot pain but does not want anything for the pain. She states is swollen, bruised and she is concerned something is fracture. Patient denies any prior fractures to her foot and ankle. No head injury no loss conscious. - Related Data Home Medications Medication Instructions Recorded Confirmed Alendronate Sodium 70 mg PO TU 02/14/18 05/21/20 Gabapentin 600 mg PO QID 02/14/18 05/21/20 Meloxicam [Mobic] 7.5 mg PO DAILY 02/14/18 05/21/20 Nitroglycerin Sl Tabs [Nitrostat] 0.4 mg SUBLINGUAL Q5M PRN 02/14/18 05/21/20 Metoprolol Succinate (ER) [Toprol 25 mg PO DAILY 10/24/18 05/21/20 XL] Acetaminophen [Tylenol Arthritis] 650 mg PO Q8H PRN 05/21/20 05/21/20 HYDROcodone/APAP 10-325MG [[place] 1 tab PO TID PRN 05/21/20 05/21/20 10-325] Allergies Allergy/AdvReac Type Severity Reaction Status Date / Time Iodinated Contrast Media Allergy Unknown Verified 05/21/20 10:50 [Iodinated Contrast- Oral and IV Dye] oxycodone [From OxyContin] AdvReac Hallucinati Verified 05/21/20 10:50 ons Review of Systems ROS Statement: Those systems with pertinent positive or pertinent negative responses have been documented in the HPI. ROS Other: All systems not noted in ROS Statement are negative. Past Medical History Past Medical History: Hypertension Additional Past Medical History / Comment(s): chronic back pain, cardiac arrest, cardiomyopathy, bilateral kneee pain (in need of replacement), left hip pain (in need of replacement) History of Any Multi-Drug Resistant Organisms: None Reported Past Surgical History: Back Surgery, Pacemaker Additional Past Surgical History / Comment(s): dual pacer, defibrillator, cervical spondylosis, multiple back surgeries. Past Anesthesia/Blood Transfusion Reactions: No Reported Reaction Type of Cardiac Device: Permanent Pacemaker, AICD Device Placement Date:: 2007 Past Psychological History: No Psychological Hx Reported Smoking Status: Never smoker Past Alcohol Use History: Occasional Past Drug Use History: None Reported - Past Family History Father Family Medical History: Congestive Heart Failure (CHF), Diabetes Mellitus Additional Family Medical History / Comment(s): in 1970 at age 57 Mother Family Medical History: Congestive Heart Failure (CHF) Additional Family Medical History / Comment(s): at age 90 General Exam Limitations: no limitations General appearance: alert, in no apparent distress Head exam: Present: atraumatic, normocephalic, normal inspection Eye exam: Present: normal appearance, PERRL, EOMI. Absent: scleral icterus, conjunctival injection, periorbital swelling Respiratory exam: Present: normal lung sounds bilaterally. Absent: respiratory distress, wheezes, rales, rhonchi, stridor Cardiovascular Exam: Present: regular rate, normal rhythm, normal heart sounds. Absent: systolic murmur, diastolic murmur, rubs, gallop, clicks Extremities exam: Present: other (Right foot and ankle there is moderate swelling and ecchymosis along the digits, tenderness diffusely of the right ankle and right foot. There is no proximal tib-fib tenderness) Course Vital Signs 05/21/20 09:52 Temperature 98.9 F Pulse Rate 69 Respiratory 18 Rate Blood Pressure 190/85 O2 Sat by Pulse 98 Oximetry Procedures - Orthopedic Splinting/Casting Injury #1 Side: right Lower Extremity Injury Location: short leg, ankle, foot Lower Extremity Immobilizer: posterior splint, synthetic pre-padded splint Other Orthopedic Equipment: crutches Medical Decision Making - Medical Decision Making 70-year-old female presented from with chief complaint of right foot pain x-ray shows evidence of distal fibular fracture, possible fourth metacarpal fracture x-rays reviewed there is also questionable second metatarsal fracture. Patient was splinted in a short leg splint for remain nonweightbearing and will follow- up with orthopedics return parameters were discussed. Disposition Clinical Impression: Fracture of fourth metatarsal bone of right foot, Fracture of distal end of right fibula Disposition: HOME SELF-CARE Condition: Stable Instructions (If sedation given, give patient instructions): Leg Fracture (ED) Additional Instructions: Please return to the Emergency Department if symptoms worsen or any other concerns. Is patient prescribed a controlled substance at d/c from ED?: No Referrals: Anai Frank DO [Primary Care Provider] - 1-2 days Jonel Burgos MD [STAFF PHYSICIAN] - 1-2 days Time of Disposition: 11:09
--- NOTE | 2020-05-21 10:40 | XR ---
EXAMINATION TYPE: XR foot complete RT DATE OF EXAM: 05/21/2020 COMPARISON: None HISTORY: Pain fall down stairs TECHNIQUE: 3 view right foot FINDINGS: Structures appear osteopenic. No displaced fractures within the foot are evident. Old fract ure of the distal third metatarsal is likely present. There is some lucency within the proximal metap hyseal fourth metatarsal. An occult fracture should be considered. Alignment of the metatarsals appea rs preserved. Joint spaces have diffuse narrowing. Large plantar calcaneal heel spur is present. The distal fibular fracture at the ankle is poorly visualized on this exam. IMPRESSION: 1. Suspected fourth metatarsal proximal metaphyseal fracture. Clinical correlation recommended. 2. Osteopenia which may make fracture identification difficult. Follow-up exam would be recommended 7 -10 days from acute trauma for continued pain. 3. Please also see right ankle dictation same date.
[2020-05-21 11:38] VITALS: BP 182/76; PULSE 60; TEMP 98.1
== END 2020-05-21 11:37 | disposition home or self-care (01) ==
LOC: EC 09:47
DX: S92.341A Displaced fracture of fourth metatarsal bone, right foot, initial encounter for closed fracture (principal); S82.421A Displaced transverse fracture of shaft of right fibula, initial encounter for closed fracture; I10 Essential (primary) hypertension; W01.0XXA Fall on same level from slipping, tripping and stumbling without subsequent striking against object, initial encounter; Y93.89 Activity, other specified; Z95.810 Presence of automatic (implantable) cardiac defibrillator; Z86.74 Personal history of sudden cardiac arrest
CPT/HCPCS: 29515; 99283

== ENCOUNTER → 2021-07-03 | Outpatient (CLI) | payer MEDICARE, BC ==
--- NOTE | 2021-07-03 11:51 | MM ---
Reason for exam: additional evaluation requested from prior study. Last mammogram was performed 3 years and 10 months ago. History: Patient is postmenopausal and had first child at age 33. Physical Findings: A clinical breast exam by your physician is recommended on an annual basis and results should be correlated with mammographic findings. MG 3D Diag Mammo W/Cad DMITRI Bilateral CC and MLO view(s) were taken. Prior study comparison: August 18, 2017, right breast MG 3d work up w/cad RT. August 06, 2017, bilateral MG screening mammo w CAD. The breast tissue is heterogeneously dense. This may lower the sensitivity of mammography. There are stable benign appearing round, grouped calcifications in the right breast. Left axillary pacemaker redemonstrated. ASSESSMENT: Benign, BI-RAD 2 RECOMMENDATION: Routine screening mammogram of both breasts in 1 year.
--- NOTE | 2021-07-03 11:53 | USB ---
Reason for exam: additional evaluation requested from prior study. History: Patient is postmenopausal and had first child at age 33. Physical Findings: A clinical breast exam by your physician is recommended on an annual basis and results should be correlated with mammographic findings. US Breast BILAT Right complete breast ultrasound includes all four quadrants, the retroareolar region and axilla. Finding demonstrates a 0.2 x 0.3 x 0.1cm oval, cystic lesion at 10 o'clock and a 0.2 x 0.3 x 0.1cm oval, cystic lesion at 10 o'clock. Tiny cysts in dense tissue. Left complete breast ultrasound includes all four quadrants, the retroareolar region and axilla. Finding demonstrates a 0.6 x 1.0 x 0.4cm lymph node at the axilla. Results were given to the patient verbally at the time of the exam. ASSESSMENT: Benign, BI-RAD 2 RECOMMENDATION: Routine screening mammogram of both breasts in 1 year.
--- NOTE | 2021-07-03 22:25 | BD ---
EXAMINATION TYPE: Axial Bone Density DATE OF EXAM: 07/03/2021 COMPARISON: NONE CLINICAL HISTORY: 71 years year old Female. ICD-10 CODE: M81.0 OSTEOPOROSIS Height: 65 Weight: 158.4 FRAX RISK QUESTIONS: Alcohol (3 or more units per day): NO Family History (Parent hip fracture): NO Glucocorticoids (More than 3mos): NO (Ex: prednisone, prednisolone, methylprednisolone, dexamethasone, and hydrocortisone). History of Fracture in Adulthood: YES Secondary Osteoporosis: 1. Type 1 Diabetes: NO 2. Hyperthyroidism: NO 3. Menopause before 45: NO 4. Malnutrition: NO 5. Chronic liver disease: NO Rheumatoid Arthritis: YES Current Tobacco Use: NO RISK FACTORS HISTORY OF: Hip Fracture (Right/Left): NO Spine Fracture: NO History of Wrist Fracture: YES LT When: AGE 68 Surgery to Spine/Hip(right/left)/Wrist (right/left): SPINAL FUSIONS L1-S1, LT WRIST When: AGE 46 Family History of Osteoporosis: NO Active: NO Diet low in dairy products/other sources of calcium: YES Postmenopausal woman: YES Take estrogen and/or progesterone medications: NO Lost more than 2 inches in height since high school: YES Frequent falls: NO Poor Health: YES Hyperparathyroidism: NO Adrenal Insufficiency: NO MEDICATIONS: Prednisone or other steroids: NO Thyroid Medications: NO Osteoporosis Medications:YES, FOSAMAX PAST 5 YEARS Additional Medications: CALCIUM, NORATIN, BP MEDS, MOBIC, FOSAMAX Additional History: EXAM MEASUREMENTS: 0.744 Bone mineral density about the R hip (g/cm2): 0.744 Bone mineral density about the L hip (g/cm2): 0.823 T Score values are as follows: -----R Neck: -2.1 -----L Neck: -1.5 -----R Total: -2.1 -----L Total: -1.7 Bone mineral density has: INCREASED 0.5% since study of: 08/06/2017 Bone mineral density about the R Wrist (g/cm2): 0.519 T Score values are as follows: -----Dist. R+U: -3.3 -----Prox. R+U: -2.1 -----Radius total: -2.6 Bone mineral density has: INCREASED 2.8% since study of: 08/06/2017 FRAX%s: The graph provided illustrates a 25.2% chance for a major osteoporotic fx and a 5.8% chance f or the hips probability for fx in 10 years time. IMPRESSION: Osteoporosis (T Score less than -2.5). There is increased fracture risk and therapy is usually indicated based on age. Re-Screen 1-2 years. NOTE: T-SCORE=SD OF THE YOUNG ADULT MEAN.
== END | disposition home or self-care (01) ==
LOC: RADMAMWWP 09:53
PROVIDERS: ATTEND Family Medicine
DX: R92.1 Mammographic calcification found on diagnostic imaging of breast (principal); N60.01 Solitary cyst of right breast; M81.0 Age-related osteoporosis without current pathological fracture; Z78.0 Asymptomatic menopausal state
CPT/HCPCS: 77080; 77066; 76641; G0279; 77062

== ENCOUNTER → 2022-09-02 | Outpatient (CLI) | payer MEDICARE, BC ==
--- NOTE | 2022-09-02 15:26 | MM ---
Reason for Exam: Screening (asymptomatic). Last mammogram was performed 1 year(s) and 2 month(s) ago. Patient History: Menarche at age 15. First Full-Term at age 33. Late child-bearing (after 30). Postmenopausal. Risk Values: Estephanie 5 year model risk: 2.2%. NCI Lifetime model risk: 6.0%. Prior Study Comparison: 08/06/2017 Bilateral Screening Mammogram, [facility]. 08/18/2017 Right Diagnostic Mammogram, [facility]. 07/03/2021 Bilateral Diagnostic Mammogram, [facility]. Tissue Density: The breast tissue is heterogeneously dense. This may lower the sensitivity of mammography. Findings: Analyzed By CAD. Stable consultations right breast posterior depth lateral aspect of CC view. There is no suspicious group of microcalcifications or new suspicious mass in either breast. Overall Assessment: Benign, BI-RAD 2 Management: Screening Mammogram of both breasts in [address] [facility] will attempt to contact patient to return for supplemental views and ultrasound if indicated. Patient should continue monthly self-breast exams. A clinical breast exam by your physician is recommended on an annual basis. This exam should not preclude additional follow-up of suspicious palpable abnormalities. Note on Estephanie scores and lifetime risk: 1. A Estephanie score greater than 3% is considered moderate risk. If this is the case, consider specialist referral to assess eligibility for a risk reducing agent. 2. If overall lifetime risk for the development of breast cancer is 20% or higher, the patient may qualify for future screening with alternating mammogram and breast MRI. Electronically signed and approved by: Daniel Basilio DO
== END | disposition home or self-care (01) ==
LOC: RADMAMWWP 09:58
PROVIDERS: ATTEND Family Medicine
DX: Z12.31 Encounter for screening mammogram for malignant neoplasm of breast (principal); Z78.0 Asymptomatic menopausal state
CPT/HCPCS: 77063; 77067